=== PATIENT | female | born 1980 | race Caucasian/White ===

== ENCOUNTER 2018-02-24 07:58 | Emergency (ER) | payer OTHER ==
[~2018-02-24] VITALS: Ht 162.6 cm; Wt 86.2 kg
[~2018-02-24 07:58] MED LIST: AMOXICILLIN500 MG PO; MEDROL4 MG PO
[2018-02-24 08:01] VITALS: BP 113/77
[2018-02-24] MEDS ORDERED: METHYLPREDNISOLO4 M2 PO (08:39)
[2018-02-24] MEDS ORDERED: CYCLOBENZAPRINE10 M1 PO (08:39)
[2018-02-24] MEDS ORDERED: IBUPROFEN800 M1 PO (08:39)
--- NOTE | 2018-02-24 08:40 | ED NECK/BACK PAIN COMPLAINT ---
History of Present Illness General Chief Complaint: Low Back Pain/Injury Stated Complaint: LOWER BACK PAIN Source: patient Exam Limitations: no limitations Vital Signs & Intake/Output Vital Signs & Intake/Output Vital Signs Date Time Temp Pulse Resp B/P B/P Pulse O2 O2 Flow FiO2 Mean Ox Delivery Rate 02/24 0801 98.2 86 20 113/77 99 Room Air Allergies Coded Allergies: No Known Allergies (02/24/18) Reconcile Medications Amoxicillin 500 MG CAP 1 TAB PO TID SORE THROAT Methylprednisolone (Medrol) 4 MG TAB 1 TAB PO AD SORE THROAT Triage Note: PT TO ED C/O LOW BACK PAIN X 1 WEEK, STATES WORSE SINCE LAST NIGHT, "I HEARD A POP LAST NIGHT". HAS TRIED OTC MEDS AND ICE WITH SOME RELIEF. PT TOOK 800MG MOTRIN AT 0400. DENIES ANY OBVIOUS INJURY. PAIN RADIATES DOWN TO B/L LEGS. Triage Nurses Notes Reviewed? yes : No Patient currently breastfeeds: No HPI: 37-year-old female presents with acute low back pain. Pain started approximately 3 days ago. It is nontraumatic. Pain radiates down bilateral thighs associated with occasional plantar numbness and tingling. Pain is worse with movement. Patient described as moderate to severe in nature. It is affecting her sleep. She denies loss of bowel or bladder control. She denies any saddle paresthesias. Patient visited a chiropractor yesterday. Last night, when opening window, patient had a click and have severe pain. Past History Travel History Traveled to [place] past 21 day No Medical History Any Pertinent Medical History? 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 No Review of Systems Review of Systems Constitutional: Denies: no symptoms. Eyes: Denies: no symptoms. Ears, Nose, Throat, Mouth: Denies: no symptoms. Respiratory: Denies: no symptoms. Cardiovascular: Denies: no symptoms. Gastrointestinal/Abdominal: Denies: no symptoms. Musculoskeletal: Reports: back pain. Skin: Denies: no symptoms. Neurological/Psychological: Reports: numbness. All Other Systems: Reviewed and Negative Physical Exam Physical Exam General Appearance: well developed/nourished, no apparent distress, alert, awake Head: atraumatic, normal appearance Neck: normal inspection, supple, full range of motion, normal alignment Respiratory: normal breath sounds, lungs clear Cardiovascular: regular rate/rhythm Gastrointestinal: normal bowel sounds, soft, non-tender Back: decreased range of motion, muscle spasm, No Step off or deformity. Bilateral paraspinous tenderness lumbar Extremities: normal range of motion Sensory: Medial Le: L4R, L4L. Motor: Deficit L4 Right: No DTR: Deficit L4 Left: No Patellar: 3: L4 Right, L4 Left. Neurologic/Psych: no motor/sensory deficits, awake, alert, normal gait, normal mood/affect Core Measures CVA/TIA Diagnosis: No Progress Differential Diagnosis: herniated disc, sciatica, Spinal Stenosis Plan of Care: Orders Procedure Date/time Status URINE 02/24 08 Complete URINALYSIS 02/25 808 Complete Laboratory Tests 02/24/18 0813: Urine Color YEL, Urine Clarity CLEAR, Urine pH 7.0, Ur Specific [place] <= 1.005 , Urine Protein NEG, Urine Ketones NEG, Urine Nitrite NEG, Urine Bilirubin NEG, Urine Urobilinogen 0.2, Ur Leukocyte Esterase TRACE H, Ur Microscopic SEDIMENT EXAMINED, Urine RBC RARE, Urine WBC 3-5 H, Ur Epithelial Cells FEW, Urine Bacteria FEW H, Urine Hemoglobin NEG, Urine Glucose NEG, Urine Test NEGATIVE Patient presents with acute lower back pain. Pain radiates down bilateral legs. She also has occasional numbness and tingling. Pain is described as severe. On exam, she has paraspinous tenderness. No midline tenderness or step-off. Her strength is 5 out of 5. Her deep tendon reflexes are 2+. Her sensory exam is also normal. Patient likely has either spinal stenosis, disc herniation. Patient will start anti-inflammatory pain medications, steroids, muscle relaxants and Tylenol as needed. I recommended follow-up with her primary care provider within the next 7-10 days for reevaluation. Patient may require physical therapy. Departure Departure Disposition: HOME OR SELF CARE Condition: Stable Clinical Impression Primary Impression: Lumbar radiculopathy Referrals: Unknown (PCP/Family) Departure Forms: Customer Survey General Discharge Information Prescriptions: Current Visit Scripts Cyclobenzaprine HCl 1 TAB PO TID PRN Muscle spasm #15 TAB Methylprednisolone 1 PACKET PO ONCE #1 PAC Ibuprofen 1 TAB PO TID #30 TAB Take with food
== END 2018-02-24 08:48 ==
LOC: ERH 07:58
DX: M54.16 Radiculopathy, lumbar region (principal); R20.0 Anesthesia of skin; M54.5 Low back pain; Z87.891 Personal history of nicotine dependence
CPT/HCPCS: 81001; 81025